=== PATIENT | female | born 1995 | race Caucasian/White ===

== ENCOUNTER 2018-01-08 20:53 | Emergency (ER) | payer SELFPAY ==
[2018-01-08 21:29] LABS: Urine Blood NEGATIVE (NEG); Urine Glucose NEGATIVE (NEG); Urine Protein 1+ (NEG); Urine Specific Gravity 1.025 (1.005-1.030)
[2018-01-08] MEDS ORDERED: ACETAMINOPHEN 500 MG TAB ONE (21:51)
[2018-01-08] MEDS ORDERED: ONDANSETRON 4 MG (ODT) TAB ONE (21:51)
[2018-01-08 22:02] LABS: Urine Bacteria >50 /HPF (<20); Urine RBC <5 /HPF (NONE SEEN)
[2018-01-08 22:03] LABS: Urine Culture Reflex Order REFLEXED
--- NOTE | 2018-01-08 22:46 | EDPHYS ---
Physician Documentation [facility] Name: Indu Washington Age: 22 yrs Sex: Female : 1995 Arrival Date: 01/08/2018 Time: 21:01 Bed 25 Private MD: ED Physician Richard Ledezma HPI: 01/08 21:35 This 22 yrs old Female presents to ER via Ambulatory with complaints of cp Dizziness, Nausea/Vomiting. 21:35 The patient presents with dizziness. Onset: The symptoms/episode began/occurred today. cp Associated signs and symptoms: Pertinent positives: headache, nausea, vomiting. Patient's baseline: Neuro: alert and fully oriented, Motor: no deficits, Ambulation: walks without assistance, Speech: normal. 21:35 Severity of symptoms: in the emergency department the symptoms have improved mildly. 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 - Social history:: Smoking status: Patient/guardian denies using tobacco. ROS: 21:42 Constitutional: Negative for body aches, chills, fever, poor PO intake. cp 21:42 Eyes: Negative for injury, pain, redness, and discharge. cp 21:42 ENT: Negative for drainage from ear(s), ear pain, sore throat, difficulty swallowing, difficulty handling secretions, hoarseness. 21:42 Neck: Negative for pain with movement, pain at rest, stiffness, tenderness, bony tenderness. 21:42 Cardiovascular: Negative for chest pain, edema, palpitations. 21:42 Respiratory: Negative for cough, shortness of breath, wheezing. 21:42 Abdomen/GI: Positive for nausea, vomiting, Negative for abdominal pain, diarrhea, constipation, dysphagia. 21:42 Back: Negative for pain at rest, pain with movement. 21:42 : Negative for urinary symptoms, flank pain, vaginal bleeding, vaginal discharge. 21:42 Skin: Negative for cellulitis, rash. 21:42 Neuro: Positive for dizziness, headache, Negative for altered mental status, weakness. 21:42 All other systems are negative. Exam: 21:48 Constitutional: The patient appears in no acute distress, alert, awake, comfortable, cp non-toxic, well developed, well nourished. 21:48 Head/Face: Normocephalic, atraumatic. cp 21:48 Eyes: Pupils equal round and reactive to light, extra-ocular motions intact. Lids and lashes normal. Conjunctiva and sclera are non-icteric and not injected. Cornea within normal limits. Periorbital areas with no swelling, redness, or edema. ENT: Nares patent. No nasal discharge, no septal abnormalities noted. Tympanic membranes are normal and external auditory canals are clear. Oropharynx with no redness, swelling, or masses, exudates, or evidence of obstruction, uvula midline. Mucous membranes moist. Neck: Trachea midline, no thyromegaly or masses palpated, and no cervical lymphadenopathy. Supple, full range of motion without nuchal rigidity, or vertebral point tenderness. No Meningismus. Chest/axilla: Normal chest wall appearance and motion. Nontender with no deformity. No lesions are appreciated. 21:48 Cardiovascular: Rate: normal, Rhythm: regular, Edema: is not appreciated, JVD: is not appreciated. 21:48 Respiratory: the patient does not display signs of respiratory distress, Respirations: normal, no use of accessory muscles, no retractions, no splinting, no tachypnea, labored breathing, is not present, Breath sounds: are clear throughout, no decreased breath sounds, no stridor, no wheezing. 21:48 Abdomen/GI: Inspection: abdomen appears normal, Bowel sounds: active, all quadrants, Palpation: abdomen is soft and non-tender, in all quadrants, rebound tenderness, is not appreciated, voluntary guarding, is not appreciated, involuntary guarding, is not appreciated. 21:48 Back: pain, is absent, ROM is normal. 21:48 Skin: cellulitis, is not appreciated, no rash present. 21:48 Neuro: Orientation: to person, place \T\ time. Mentation: is normal, Cerebellar function: is grossly normal, Motor: moves all fours, strength is normal, Sensation: no obvious gross deficits, Gait: is steady, at a normal pace, without difficulty. Vital Signs: 21:03 BP 107 / 64; Pulse 78; Resp 14; Temp 97.4(TE); Pulse Ox 99% on R/A; Weight 65.77 kg lk1 (R); Height 5 ft. 3 in. (160.02 cm) (R); Pain 8/10; 23:26 BP 107 / 79; Pulse 63; Resp 16; Pulse Ox 100% on R/A; mb3 21:03 Body Mass Index 25.69 (65.77 kg, 160.02 cm) lk1 MDM: 21:24 Patient medically screened. cp 22:00 Differential diagnosis: hypovolemia, UTI, pyelonephritis, dehydration, migraine. cp 22:45 Data reviewed: vital signs, nurses notes, lab test result(s), and as a result, I will cp discharge patient. 01/08 21:27 Order name: Urine Dipstick--Ancillary (enter results); Complete Time: 21:40 2 01/08 22:25 Interpretation: Normal except: UPROT 1+; U NIT POSITIVE. cp 01/08 21:27 Order name: Urine --Ancillary (enter results); Complete Time: 21:40 2 01/08 21:40 Order name: Urine Microscopic Only; Complete Time: 22:25 cp 01/08 22:25 Interpretation: Normal except: UWBC 5-10; UBACT >50; SQEPI 10-20. cp 01/08 22:04 Order name: Urine Culture EDMS 01/08 21:47 Order name: PO challenge; Complete Time: 22:43 cp 01/08 21:58 Order name: Orthostatics; Complete Time: 23:27 cp Administered Medications: 21:53 Drug: Zofran 4 mg Route: PO; mb3 23:28 Follow up: Response: No adverse reaction mb3 21:53 Drug: Tylenol 1000 mg Route: PO; mb3 23:27 Follow up: Response: No adverse reaction mb3 22:45 Drug: Rocephin (cefTRIAXone) 1 grams Route: IM; Site: right gluteus; mb3 23:27 Follow up: Response: No adverse reaction mb3 22:45 Drug: Bactrim (160 mg-800 mg (DS) 1 tablet Route: PO; mb3 23:27 Follow up: Response: No adverse reaction mb3 Disposition: 01/08/18 22:46 Discharged to Home. Impression: Urinary tract infection, site not specified, Nausea, Headache. - Condition is Stable. - Discharge Instructions: General Headache Without Cause, Nausea, Adult, Urinary Tract Infection. - Prescriptions for Zofran 4 mg Oral Tablet - take 1 tablet by ORAL route every 12 hours As needed; 20 tablet. Bactrim DS 800- 160 mg Oral Tablet - take 1 tablet by ORAL route every 12 hours for 7 days; 14 tablet. Ibuprofen 800 mg Oral Tablet - take 1 tablet by ORAL route every 8 hours As needed take with food; 30 tablet. - Medication Reconciliation Form, Thank You Letter, Antibiotic Education, Prescription Opioid Use form. - Follow up: Private Physician; When: 48 Hours; Reason: Recheck today's complaints. - Problem is new. - Symptoms have improved. Addendum: 01/11/2018 07:46 Co-signature as Attending Physician, Ricahrd Ledezma MD I agree with the assessment and c walters plan of care. Signatures: Dispatcher [employer] EDUT Richard Ledezma MD MD cha Page, Corey, PA PA cp Kluge, Leah, RN RN lk1 Sb Gaxiola RN RN mb3 Corrections: (The following items were deleted from the chart) 01/08 23:28 22:46 01/08/2018 22:46 Discharged to Home. Impression: Urinary tract infection, site mb3 not specified; Nausea; Headache. Condition is Stable. Forms are Medication Reconciliation Form, Thank You Letter, Antibiotic Education, Prescription Opioid Use. Follow up: Private Physician; When: 48 Hours; Reason: Recheck today's complaints. Problem is new. Symptoms have improved. cp
--- NOTE | 2018-01-08 22:46 | ER ---
Nurse's Notes [facility] Name: Indu Washington Age: 22 yrs Sex: Female : 1995 Arrival Date: 01/08/2018 Time: 21:01 Bed 25 Private MD: Diagnosis: Urinary tract infection, site not specified;Nausea;Headache Presentation: 01/08 21:01 Presenting complaint: Patient states: "I have been dizzy, vomiting, and had a lk1 headache.". Transition of care: patient was not received from another setting of care. Onset of symptoms was January 05, 2018. Initial Sepsis Screen: Does the patient meet any 2 criteria? No. Patient's initial sepsis screen is negative. Does the patient have a suspected source of infection? No. Patient's initial sepsis screen is negative. Care prior to arrival: None. 21:01 Method Of Arrival: Ambulatory lk1 21:01 Acuity: THIEN 3 lk1 Triage Assessment: 21:02 General: Appears ill, Behavior is calm, cooperative, appropriate for age. Pain: lk1 Complains of pain in head Pain currently is 8 out of 10 on a pain scale. Neuro: Level of Consciousness is awake, alert, obeys commands, Oriented to person, place, time, situation, Reports dizziness. GI: Reports constipation, nausea, vomiting. 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 - Social history:: Smoking status: Patient/guardian denies using tobacco. Screenin:13 Abuse screen: Denies threats or abuse. Nutritional screening: No deficits noted. mb3 Tuberculosis screening: No symptoms or risk factors identified. Fall Risk None identified. Assessment: 21:12 General: Appears uncomfortable, well groomed, Behavior is calm, cooperative, mb3 appropriate for age. Pain: Denies pain. Neuro: No deficits noted. Cardiovascular: No deficits noted. Heart tones S1 S2 present. Respiratory: No deficits noted. Airway is patent Respiratory effort is even, unlabored, Respiratory pattern is regular, symmetrical. GI: Bowel sounds present X 4 quads. Abd is soft Abd is non tender Reports nausea. : No signs and/or symptoms were reported regarding the genitourinary system. Musculoskeletal: No deficits noted. No signs and/or symptoms reported regarding the musculoskeletal system. Capillary refill < 3 seconds, Range of motion: intact in all extremities. Vital Signs: 21:03 BP 107 / 64; Pulse 78; Resp 14; Temp 97.4(TE); Pulse Ox 99% on R/A; Weight 65.77 kg lk1 (R); Height 5 ft. 3 in. (160.02 cm) (R); Pain 8/10; 23:26 BP 107 / 79; Pulse 63; Resp 16; Pulse Ox 100% on R/A; mb3 21:03 Body Mass Index 25.69 (65.77 kg, 160.02 cm) lk1 ED Course: 21:01 Patient arrived in ED. es 21:02 Triage completed. lk1 21:05 Arm band placed on right wrist. lk1 21:07 Sb Gaxiola, RN is Primary Nurse. mb3 21:20 Richard Harrington PA is PHCP. cp 21:20 Richard Ledezma MD is Attending Physician. cp 21:23 Patient has correct armband on for positive identification. Bed in low position. Call mb3 light in reach. Side rails up X 1. 23:26 No provider procedures requiring assistance completed. Patient did not have IV access mb3 during this emergency room visit. Administered Medications: 21:53 Drug: Zofran 4 mg Route: PO; mb3 23:28 Follow up: Response: No adverse reaction mb3 21:53 Drug: Tylenol 1000 mg Route: PO; mb3 23:27 Follow up: Response: No adverse reaction mb3 22:45 Drug: Rocephin (cefTRIAXone) 1 grams Route: IM; Site: right gluteus; mb3 23:27 Follow up: Response: No adverse reaction mb3 22:45 Drug: Bactrim (160 mg-800 mg (DS) 1 tablet Route: PO; mb3 23:27 Follow up: Response: No adverse reaction mb3 Outcome: 22:46 Discharge ordered by . cp 23:26 Discharged to home ambulatory. mb3 23:26 Condition: stable 23:26 Discharge instructions given to patient, Instructed on discharge instructions, follow up and referral plans. medication usage, Demonstrated understanding of instructions, follow-up care, medications, Prescriptions given X 2. 23:28 Patient left the ED. mb3 Signatures: Gabriella Holt Corey, PA PA cp Kluge, Leah, RN RN lk1 Sb Gaxiola RN RN mb3
[2018-01-08] MEDS ORDERED: SMZ./TMP. 800/160 MG TABLET ONE (22:47)
[2018-01-08] MEDS ORDERED: CEFTRIAXONE 1000 MG/VIAL ONE (22:48)
[2018-01-08] MEDS ORDERED: LIDOCAINE 1% 20 ML MDV ONE (22:48)
== END 2018-01-08 23:28 | disposition home or self-care (01) ==
LOC: ER 20:53
DX: N39.0 Urinary tract infection, site not specified (principal); R51 Headache; R11.0 Nausea
CPT/HCPCS: 81003; 81015; 81025; 87077; 87086; 87088; 87186; 96372; 99283

== ENCOUNTER 2019-01-09 13:43 | Emergency (ER) | payer SELFPAY ==
[2019-01-09 15:19] LABS: Absolute Lymphocytes (CBC) 1.3 K/uL (0.7-4.9); Absolute Monocytes 0.5 K/uL (0.1-1.3); Absolute Neutrophil 7.8 K/uL (1.8-8.0); Basophils % 0.4 % (0-1.3); Eosinophils % 0.8 % (0-4.4); Hematocrit 34.5 % (36.0-45.0); Lymphocytes % 13.8 % (15.3-44.8); MPV 8.5 fL (7.6-11.3); Monocytes % 4.7 % (3.3-12.3); RBC Red Blood Cell Count 5.22 M/uL (3.86-4.86)
[2019-01-09 15:49] LABS: Potassium 3.8 mmol/L (3.5-5.1)
[2019-01-09 15:58] LABS: Blood Morphology Comment NOTED (NOT SEEN); Hypochromasia 1+; Platelet Estimate ADEQ; Urine White Blood Cell Casts OK
--- NOTE | 2019-01-09 16:10 | RAD REPORT ---
EXAM DESCRIPTION: US - TRANSVAG OB - 01/09/2019 3:50 pm CLINICAL HISTORY: VAGINAL BLEEDING COMPARISON: No comparisons FINDINGS: A single gestational sac is seen within the uterus. The shape of the sac is within normal limits for gestational age. Within the sac is a single pole with crown-rump length of 2 mm, cor relating to estimated gestational age of 5 weeks 5 days. Estimated date of delivery is 09/06/2019. Heart rate is not yet identified. The placenta is not yet developed due to early gestational age. The maternal adnexa and ovaries are within normal limits. Normal Doppler blood flow was demonstrated to both ovaries. Mild pelvic ascites. IMPRESSION: Single early intrauterine gestation with estimated gestational age of 5 weeks 5 days, ED D 09/06/2019. Heart rate was not yet visualized, however this is still a normal finding at this gestational age. Fo llowup sonography would be recommended 10-12 days.
--- NOTE | 2019-01-09 16:40 | ER ---
Nurse's Notes [facility] Name: Indu Washington Age: 23 yrs Sex: Female : 1995 Arrival Date: 01/09/2019 Time: 13:44 Bed 23 Private MD: Diagnosis: Threatened Presentation: 01/09 14:28 Presenting complaint: Patient states: LMP was 4-17-19, took home UPT and was positive iw yesterday. Today she's having cramping in vaginal area and bleeding when she wipes. Transition of care: patient was not received from another setting of care. Onset of symptoms was January 09, 2019. Risk Assessment: Do you want to hurt yourself or someone else? Patient reports no desire to harm self or others. Initial Sepsis Screen: Does the patient meet any 2 criteria? No. Patient's initial sepsis screen is negative. Does the patient have a suspected source of infection? No. Patient's initial sepsis screen is negative. Care prior to arrival: None. 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 - Social history:: Smoking status: Patient/guardian denies using tobacco. - Ebola Screening: : Patient negative for fever greater than or equal to 101.5 degrees Fahrenheit, and additional compatible Ebola Virus Disease symptoms Patient denies exposure to infectious person Patient denies travel to an Ebola-affected area in the 21 days before illness onset No symptoms or risks identified at this time. Screenin:44 Abuse screen: Denies threats or abuse. Nutritional screening: No deficits noted. la1 Tuberculosis screening: No symptoms or risk factors identified. Fall Risk None identified. Assessment: 14:43 General: Appears in no apparent distress. Behavior is calm, cooperative. Pain: la1 Complains of pain in vaginal area. Neuro: Level of Consciousness is awake, alert, obeys commands, Oriented to person, place, time, situation. Cardiovascular: Capillary refill < 3 seconds Patient's skin is warm and dry. Respiratory: Airway is patent Respiratory effort is even, unlabored, Respiratory pattern is regular, symmetrical. GI: Abdomen is round Bowel sounds present X 4 quads. Abd is soft and non tender X 4 quads. : Reports Small amount of vaginal bleeding after wiping. Vital Signs: 14:31 BP 120 / 76; Pulse 89; Resp 16; Temp 98.5; Pulse Ox 100% ; Weight 68.04 kg; Height 5 iw ft. 2 in. (157.48 cm); Pain 7/10; 16:46 BP 120 / 86; Pulse 70; Resp 16; Temp 98.6; Pulse Ox 100% ; rv 14:31 Body Mass Index 27.44 (68.04 kg, 157.48 cm) ED Course: 13:44 Patient arrived in ED. tw3 14:27 Edin Razo PA is PHCP. [facility] 14:27 Mike Chanel MD is Attending Physician. [facility] 14:28 Edwar Mojica, BRITTANY is Primary Nurse. la1 14:30 Triage completed. iw 14:32 Arm band placed on. iw 14:44 Call light in reach. la1 15:32 No provider procedures requiring assistance completed. Inserted saline lock: 22 gauge la1 in right antecubital area, using aseptic technique. Blood collected. 15:50 TRANSVAG OB In Process Unspecified. EDMS 15:55 Ultrasound completed. Patient tolerated well. sg3 16:48 IV discontinued, intact, bleeding controlled, No redness/swelling at site. Pressure rv dressing applied. Administered Medications: No medications were administered Outcome: 16:39 Discharge ordered by . [facility] 16:47 Discharged to home ambulatory. rv 16:47 Condition: good 16:47 Discharge instructions given to patient, Instructed on discharge instructions, follow up and referral plans. Demonstrated understanding of instructions, follow-up care. 16:48 Patient left the ED. rv Signatures: Dispatcher [employer] EDMS Edin Razo PA PA jmm Williams, Irene, RN RN Edwar Mojica RN RN la1 Michelle Mcneill tw3 Key Baptiste sg3 Fermin Guerin RN RN rv
--- NOTE | 2019-01-09 16:41 | EDPHYS ---
Physician Documentation [facility] Name: Indu Washington Age: 23 yrs Sex: Female : 1995 Arrival Date: 01/09/2019 Time: 13:44 Bed 23 Private MD: ED Physician Mike Chanel HPI: 01/09 14:37 This 23 yrs old Female presents to ER via Ambulatory with complaints of jmm Abdominal Cramping - unk weeks preg. 14:37 The patient presents to the emergency department with vaginal bleeding. Associated jmm signs and symptoms: Pertinent positives: vaginal bleeding. This is a 23 year old female with a history of anxiety that presents to the ED with complaints of pelvic cramping and vaginal bleeding beginning earlier today. Patient denies vomiting, denies nausea, denies diarrhea. . 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 - Social history:: Smoking status: Patient/guardian denies using tobacco. - Ebola Screening: : Patient negative for fever greater than or equal to 101.5 degrees Fahrenheit, and additional compatible Ebola Virus Disease symptoms Patient denies exposure to infectious person Patient denies travel to an Ebola-affected area in the 21 days before illness onset No symptoms or risks identified at this time. ROS: 14:37 Constitutional: Negative for fever, chills, and weight loss, Cardiovascular: Negative jmm for chest pain, palpitations, and edema, Respiratory: Negative for shortness of breath, cough, wheezing, and pleuritic chest pain. 14:37 Abdomen/GI: Negative for abdominal pain, nausea, vomiting, diarrhea, and constipation. 14:37 Abdomen/GI: 14:37 : Positive for vaginal bleeding. 14:37 All other systems are negative. Exam: 14:37 Head/Face: atraumatic. Eyes: EOMI, no conjunctival erythema appreciated ENT: Moist jmm Mucus Membranes Neck: Trachea midline, Supple Chest/axilla: Normal chest wall appearance and motion. Cardiovascular: Regular rate and rhythm. No edema appreciated Respiratory: Normal respirations, no respiratory distress appreciated Abdomen/GI: Non distended, soft Back: Normal ROM Skin: General appearance color normal MS/ Extremity: Moves all extremities, no obvious deformities appreciated, no edema noted to the lower extremities Neuro: Awake and alert, normal gait Psych: Behavior is normal, Mood is normal, Patient is cooperative and pleasant 14:37 Constitutional: The patient appears in no acute distress, alert, awake. 14:37 Abdomen/GI: Inspection: abdomen appears normal, Bowel sounds: normal, Palpation: abdomen is soft and non-tender, in all quadrants. Vital Signs: 14:31 BP 120 / 76; Pulse 89; Resp 16; Temp 98.5; Pulse Ox 100% ; Weight 68.04 kg; Height 5 iw ft. 2 in. (157.48 cm); Pain 7/10; 16:46 BP 120 / 86; Pulse 70; Resp 16; Temp 98.6; Pulse Ox 100% ; rv 14:31 Body Mass Index 27.44 (68.04 kg, 157.48 cm) iw MDM: 14:37 Patient medically screened. [facility] 16:38 Data reviewed: vital signs, nurses notes. Counseling: I had a detailed discussion with leola the patient and/or guardian regarding: the historical points, exam findings, and any diagnostic results supporting the discharge/admit diagnosis, lab results, radiology results, the need for outpatient follow up, to return to the emergency department if symptoms worsen or persist or if there are any questions or concerns that arise at home. ED course: Patient advised to follow up with OB for reevaluation in 2 to 3 days. Patient is otherwise advised to return to the ED if she develops increased pain, weakness, or any other concerning symptoms. Patient understood and agrees with the plan of care. . 01/09 14:39 Order name: Urine Dipstick--Ancillary (enter results) 01/09 14:39 Order name: Urine --Ancillary (enter results) 01/09 14:46 Order name: Quantitative Hcg; Complete Time: 16:08 [facility] 01/09 14:46 Order name: Abo/rh Typing; Complete Time: 15:30 [facility] 01/09 14:46 Order name: Basic Metabolic Panel; Complete Time: 16:08 [facility] 01/09 14:46 Order name: CBC with Diff; Complete Time: 16:08 [facility] 01/09 14:46 Order name: IV Saline Lock; Complete Time: 15:24 [facility] 01/09 14:46 Order name: Labs collected and sent; Complete Time: 15:24 [facility] 01/09 14:46 Order name: NPO; Complete Time: 15:24 [facility] 01/09 14:46 Order name: Urine Dipstick-Ancillary (obtain specimen); Complete Time: 15:24 [facility] 01/09 14:57 Order name: TRANSVAG OB; Complete Time: 16:15 [facility] 01/09 15:35 Order name: CBC Smear Scan; Complete Time: 16:08 [facility] Administered Medications: No medications were administered Disposition: 01/09/19 16:39 Discharged to Home. Impression: Threatened . - Condition is Stable. - Discharge Instructions: Threatened Miscarriage, Vaginal Bleeding During , First Trimester, Pelvic Rest. - Medication Reconciliation Form, Thank You Letter, Antibiotic Education, Prescription Opioid Use form. - Follow up: Private Physician; When: 2 - 3 days; Reason: Recheck today's complaints, Continuance of care, Repeat Beta-HCG (48 Hours), Re-evaluation by your physician. Addendum: 01/13/2019 20:52 Co-signature as Attending Physician, Mike Chanel MD. g s Signatures: Dispatcher [employer] [facility] Edin Razo PA PA [facility] Shruthi Bazzi, Mike Swenson RN, MD MD gs Vicente, Ronaldo, RN RN rv Corrections: (The following items were deleted from the chart) 01/09 14:57 14:47 OB Limited+[id number].[id number] ordered. [facility] 16:48 16:39 01/09/2019 16:39 Discharged to Home. Impression: Threatened . Condition rv is Stable. Forms are Medication Reconciliation Form, Thank You Letter, Antibiotic Education, Prescription Opioid Use. Follow up: Private Physician; When: 2 - 3 days; Reason: Recheck today's complaints, Continuance of care, Repeat Beta-HCG (48 Hours), Re-evaluation by your physician. [facility]
[2019-01-09 17:12] LABS: Urine Blood 1+ (NEG); Urine Glucose NEGATIVE (NEG); Urine Protein NEGATIVE (NEG); Urine Specific Gravity 1.025 (1.005-1.030); Urine pH 6.5 (5.0-7.0)
== END 2019-01-09 16:48 | disposition home or self-care (01) ==
LOC: ER 13:43
DX: O20.0 Threatened abortion (principal); Z3A.01 Less than 8 weeks gestation of pregnancy
CPT/HCPCS: 36415; 76813; 80048; 81003; 81025; 84702; 85025; 86900; 86901; 99283

== ENCOUNTER 2019-08-31 01:50 | Inpatient (IN) | payer OTHER ==
--- OUTSIDE RECORDS SUMMARY | 2019-08-31 01:52 | XMS REPORT ---
:1995 [facility] Address [address] [place] [id number] Care Team Providers Name Role Phone Unavailable Unavailable Unavailable Problems This patient has no known problems. Allergies, Adverse Reactions, Alerts This patient has no known allergies or adverse reactions. Medications This patient has no known medications.
[2019-08-31] MEDS ORDERED: CARBOPROST TROME 250 MCG/ML IM PRN (02:39)
[2019-08-31] MEDS ORDERED: PENICILLIN 5 MU in NA CHLORIDE 0.9% 100 ML IV ONE (02:39)
[2019-08-31] MEDS ORDERED: BUTORPHANOL 1 MG/ML INJ IV PRN (02:39)
[2019-08-31] MEDS ORDERED: PROMETHAZINE INJ 25 MG/ML AMP IM PRN (02:39)
[2019-08-31] MEDS ORDERED: Ringers Lactate 1,000 ML IV PRN (02:39)
[2019-08-31] MEDS ORDERED: METHYLERGONOVINE 0.2MG/ML AMP IM PRN (02:39)
[2019-08-31 02:50] VITALS: BMI 34.2
[2019-08-31] MEDS ORDERED: OXYTOCIN/LR 20 UNIT/1,000 ML BAG IV SCH ×2 (03:00→18:00)
[2019-08-31] MEDS ORDERED: Ringers Lactate 1,000 ML IV SCH (03:00)
[2019-08-31 03:32] LABS: Absolute Lymphocytes (CBC) 2.1 K/uL (0.7-4.9); Basophils % 0.4 % (0-1.3); Hematocrit 24.1 % (36.0-45.0); Lymphocytes % 22.8 % (15.3-44.8); MPV 8.4 fL (7.6-11.3)
[2019-08-31] MEDS ORDERED: PENICILLIN 2.5 MU in NA CHLORIDE 0.9% 100 ML IV SCH ×2 (05:00→07:30)
[2019-08-31 05:06] LABS: Blood Morphology Comment NOTED (NOT SEEN); Hypochromasia 2+; Platelet Estimate ADEQ; Urine White Blood Cell Casts OK
[2019-08-31 05:35] LABS: Urine Appearance CLEAR; Urine Bilirubin NEGATIVE (NEG); Urine Blood NEGATIVE (NEG); Urine Color YELLOW; Urine Glucose NEGATIVE (NEG); Urine Protein NEGATIVE (NEG); Urine Specific Gravity 1.025 (1.005-1.030); Urine Urobilinogen 0.2 mg/dL (0.2-1.0); Urine pH 6.5 (5.0-7.0)
[2019-08-31 05:53] LABS: RPR (Rapid Plasma Reagin) NON-REACT (NON-REACT)
[2019-08-31 05:56] LABS: Urine Bacteria <20 /HPF (<20); Urine Culture Reflex Order REFLEXED; Urine RBC <5 /HPF (NONE SEEN); Urine Urothelial Cells <5 /HPF (NONE SEEN)
[2019-08-31] MEDS ORDERED: METHYLERGONOVINE 0.2MG/ML AMP IM ONE (14:44)
[2019-08-31] MEDS ORDERED: CARBOPROST TROME 250 MCG/ML IM ONE (14:44)
[2019-08-31] MEDS ORDERED: LIDOCAINE 1% MPF 30 ML VIAL ONE (14:45)
[2019-08-31] MEDS ORDERED: DIPHENHYDRAMINE 25 MG TAB/CAP PO PRN (17:19)
[2019-08-31] MEDS ORDERED: Oxycodone HCl/Acetaminophen 1 TAB TAB PO PRN ×2 (17:19)
[2019-08-31] MEDS ORDERED: DOCUSATE NA/SENNA CONC 1 TAB PO PRN (17:19)
[2019-08-31] MEDS ORDERED: ACETAMINOPHEN 500 MG TAB PO PRN (17:19)
[2019-08-31] MEDS ORDERED: BISACODYL 10 MG RECTAL SUPP RECT PRN (17:19)
[2019-08-31] MEDS ORDERED: OXYTOCIN/LR 20 UNIT/1,000 ML BAG IV ONE (18:00)
--- NOTE | 2019-09-01 00:20 | OP ---
Surgeon: Karl Stewart MD History: This is a 24-year-old primigravida, 39 weeks 1 day came in with premature rupture of membra anastacia. Rh positive, immune to Rubella. Positive strep screen. Given 4 doses of penicillin during the labor, 2 doses of Stadol 1 mg plus Phenergan 25 mg IM. After achieving 4 cm, went rapidly to comple te second stage of 15 to 20 minutes. Spontaneous vaginal delivery of an estimated 6-1/2 to 7 pounds female Apgars 9 and 9. Very small first-degree laceration involving the right labia minora sutured w ith 2-0 chromic local infiltration, 4-5 stitches, 1-2 [id number] stitches at the posterior fourc hette for a very small first-degree there also. Schultze delivery of the placenta was inspected and noted to be intact and normal. 400 mL or less blood loss. The patient tolerated all procedures well . Final Diagnoses: Term intrauterine , spontaneous vaginal delivery, penicillin prophylaxis. Patient had mildly elevated blood pressures and edema, but was always negative for protein. I do no t believe she has preeclampsia. CECILIO/ISABEL Voice ID: [id number] Report ID: [id number]
[2019-09-01] MEDS ORDERED: IBUPROFEN 600 MG TAB ONE ×2 (05:00→17:24)
[2019-09-01] MEDS: IBUPROFEN 600 MG TAB PO PRN ×2 (05:00→17:30)
--- NOTE | 2019-09-01 14:34 | PN ---
Patient is on 20 milliunits of Pitocin. After the Stadol though contractions pretty much spread out. We will go up 2 more milliunits and see if that helps. Beat to beat decreases but returns after a reasonable period of time. I think we will try to stay away from the Stadol but if we give her anoth er dose we just give Stadol and no Phenergan to go along with it. Baby is down low at almost 0 stati on. She is about 3 cm, 60% effaced. As soon as we finish out the effacement, I think dilation will start. CECILIO/ISABEL Voice ID: [id number] Report ID: [id number]
--- NOTE | 2019-09-01 14:34 | PREOPHP ---
Date of Admission: 08/31/2019 24-year-old primigravida, at 39 weeks and 2 days approximately, has been followed antepartum and note d to have significant swelling. Preeclampsia has been discussed with patient on numerous occasions. She has positive beta strep status. This has been discussed and the patient is currently on penicil lorena prophylaxis and she has been noncompliant in taking her vitamins and has become progressively mor e anemic during the . On admission, hematocrit is in the 24 to 25 range. Patient is comple tely asymptomatic. She experienced spontaneous rupture of membranes, came into labor and delivery ap proximately somewhere between midnight and 4 a.m. She has been started on penicillin prophylaxis and Pitocin. She is now cm, 60% effaced, vertex, -1 station. Clear fluid. Patient had been given 1 mg Stadol and the baby's reactivity has decreased but was good before. Her urine protein wa s negative. Her blood pressures are mildly elevated and of course, she does have significant swellin g, will watch carefully during the labor for development of preeclampsia. Full admission talk given including anemia and preeclampsia precautions, anticipate delivery sometime later today. Patient is Rh positive and immune to Rubella. CECILIO/ISABEL Voice ID: [id number]
--- NOTE | 2019-09-01 14:34 | PN ---
Baby looks better, more variability now. Patient and baby are waking up. She is 3 cm, 70% vertex at 0 station. I think, when effacement is complete we will start seeing more rapid dilation. We will check her again in an hour or so and see what kind of progress we are making. CECILIO/ISABEL Voice ID: [id number] Report ID: [id number]
[2019-09-01 17:36] VITALS: BP 139/82; TEMP 98.2
--- NOTE | 2019-09-02 02:10 | DS ---
Date of Discharge: 09/01/2019 Hospital Course: A 24-year-old primigravida, 39 weeks 1 day, delivered an estimated 6-1/2 to 7 pound s female , Apgars 9 and 9. During the labor, had Stadol 1 mg x2 plus Phenergan 25 mg IM x2. V maksim small first degree laceration x2. Sutured with 2-0 chromic. Local infiltration. She also deliv ered the placenta, was inspected and noted to be intact and normal. Less than 400 mL blood loss. Pe nicillin prophylaxis x4 during the labor. She is Rh positive and immune to Rubella. She has had her Tdap immunization. Came in with a very low H and H, but this has been chronic and she has not been taking her vitamins and iron as instructed. She is absolutely asymptomatic. With the baby out, she should be able to replenish her iron stores more rapidly. Full discussion with patient multiple time s during the and again today. She will report back to my office in 6 weeks for followup. She will report any temperature elevation of 100 degrees or greater, severe pain, heavy bleeding, or any other type abnormalities and of course iron supplementation strongly suggested. Final Diagnoses: Term intrauterine . Spontaneous vaginal delivery. Preexisting anemia. P enicillin prophylaxis. CECILIO/ISABEL Voice ID: [id number] Report ID: [id number]
[2019-09-03 05:41] LABS: HBsAG Nonreactive (Nonreactive)
== END 2019-09-01 20:36 | disposition home or self-care (01) | DRG 806 ==
LOC: L&D 01:50 → 2ND-WC 02:31
PROVIDERS: ADMIT Specialist; ATTEND Specialist
PROC: 0HQ9XZZ Repair Perineum Skin, External Approach (ICD-10-PCS; principal; 2019-08-31)
PROC: 10E0XZZ Delivery of Products of Conception, External Approach (ICD-10-PCS; 2019-08-31)
DX: O70.0 First degree perineal laceration during delivery (principal); O98.82 Other maternal infectious and parasitic diseases complicating childbirth; Z37.0 Single live birth; O99.02 Anemia complicating childbirth; D64.9 Anemia, unspecified; Z3A.39 39 weeks gestation of pregnancy; B95.1 Streptococcus, group B, as the cause of diseases classified elsewhere
CPT/HCPCS: 36415; 81001; 85025; 86592; 86850; 86900; 86901; 87086; 87088; 87340; J0595; J2210; J2550; J2590; J7120

== ENCOUNTER 2020-07-27 10:22 | Emergency (ER) | payer OTHER ==
--- OUTSIDE RECORDS SUMMARY | 2020-07-27 10:24 | XMS REPORT | Continuity of Care Document ---
:1995 Author Organization [facility] t Address [address] [place] [address] Care Team Providers Name Role Phone Doctor Unassigned, Name Attending Clinician Unavailable Problems This patient has no known problems. Allergies, Adverse Reactions, Alerts This patient has no known allergies or adverse reactions. Medications This patient has no known medications. Procedures This patient has no known procedures. Encounters Start End Encounter Admission Attending Care Care Encounter Source Date/Time Date/Time Type Type Clinicians Facility Department ID 2019-02-26 2019-02-26 Patient Doctor ANA [id number] 00:00:00 00:00:00 Secure Msg UnassRED preciado [id number] [place] [facility] [id number] Results This patient has no known results.
[2020-07-27] MEDS ORDERED: NA CHLORIDE 0.9% 1,000 ML ONE (11:19)
[2020-07-27 11:28] LABS: Absolute Lymphocytes (CBC) 2.4 K/uL (0.7-4.9); Hematocrit 33.2 % (36.0-45.0); Lymphocytes % 38.5 % (15.3-44.8); MPV 8.2 fL (7.6-11.3); RBC Red Blood Cell Count 4.97 M/uL (3.86-4.86)
[2020-07-27] MEDS ORDERED: CEFTRIAXONE/SWI 1gm 1 GM/10 ML SYR ONE (11:46)
[2020-07-27] MEDS ORDERED: ONDANSETRON 4 MG/2 ML VIAL ONE (11:46)
[2020-07-27 12:07] LABS: BUN Blood Urea Nitrogen 9 mg/dL (7-18); Bicarbonate 26 mmol/L (21-32); Glucose Level 85 mg/dL (74-106); HCG, Quantitative 33755 mIU/mL (1-3); Sodium Level 139 mmol/L (136-145)
--- NOTE | 2020-07-27 12:17 | EDPHYS ---
Physician Documentation [facility] Name: Indu Washington Age: 24 yrs Sex: Female : 1995 Arrival Date: 07/27/2020 Time: 10:25 Bed 16 Private MD: ALEXUS Physician Richard Ledezma HPI: 07/27 10:50 This 24 yrs old Female presents to ER via Unassigned with complaints of malvin Vaginal Bleeding. 10:50 The patient presents with pelvic pain, vaginal bleeding that is. Onset: The malvin symptoms/episode began/occurred 2 day(s) ago. Onset: The symptoms/episode began/occurred acutely. Modifying factors: The symptoms are alleviated by nothing, the symptoms are aggravated by nothing. Associated signs and symptoms: The patient has no apparent associated signs or symptoms. Severity of symptoms: At their worst the symptoms were mild, in the emergency department the symptoms are unchanged. The patient is sexually active, reportedly has a single partner. The patient has not experienced similar symptoms in the past. 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 - Family history:: not pertinent. - Social history:: Smoking status: unknown. ROS: 10:50 Constitutional: Negative for fever, chills, and weight loss, Eyes: Negative for injury, malvin pain, redness, and discharge, ENT: Negative for injury, pain, and discharge, Neck: Negative for injury, pain, and swelling, Cardiovascular: Negative for chest pain, palpitations, and edema, Respiratory: Negative for shortness of breath, cough, wheezing, and pleuritic chest pain, Abdomen/GI: Negative for abdominal pain, nausea, vomiting, diarrhea, and constipation, Back: Negative for injury and pain, MS/Extremity: Negative for injury and deformity, Skin: Negative for injury, rash, and discoloration, Neuro: Negative for headache, weakness, numbness, tingling, and seizure, Psych: Negative for depression, anxiety, suicide ideation, homicidal ideation, and hallucinations, Allergy/Immunology: Negative for hives, rash, and allergies, Endocrine: Negative for neck swelling, polydipsia, polyuria, polyphagia, and marked weight changes, Hematologic/Lymphatic: Negative for swollen nodes, abnormal bleeding, and unusual bruising. 10:50 Back: Positive for 10:50 : Positive for vaginal bleeding. Exam: 10:50 Constitutional: This is a well developed, well nourished patient who is awake, alert, malvin and in no acute distress. Head/Face: Normocephalic, atraumatic. Eyes: Pupils equal round and reactive to light, extra-ocular motions intact. Lids and lashes normal. Conjunctiva and sclera are non-icteric and not injected. Cornea within normal limits. Periorbital areas with no swelling, redness, or edema. ENT: Nares patent. No nasal discharge, no septal abnormalities noted. Tympanic membranes are normal and external auditory canals are clear. Oropharynx with no redness, swelling, or masses, exudates, or evidence of obstruction, uvula midline. Mucous membranes moist. Neck: Trachea midline, no thyromegaly or masses palpated, and no cervical lymphadenopathy. Supple, full range of motion without nuchal rigidity, or vertebral point tenderness. No Meningismus. Chest/axilla: Normal chest wall appearance and motion. Nontender with no deformity. No lesions are appreciated. Cardiovascular: Regular rate and rhythm with a normal S1 and S2. No gallops, murmurs, or rubs. Normal PMI, no JVD. No pulse deficits. Respiratory: Lungs have equal breath sounds bilaterally, clear to auscultation and percussion. No rales, rhonchi or wheezes noted. No increased work of breathing, no retractions or nasal flaring. Abdomen/GI: Soft, non-tender, with normal bowel sounds. No distension or tympany. No guarding or rebound. No evidence of tenderness throughout. Back: No spinal tenderness. No costovertebral tenderness. Full range of motion. Skin: Warm, dry with normal turgor. Normal color with no rashes, no lesions, and no evidence of cellulitis. MS/ Extremity: Pulses equal, no cyanosis. Neurovascular intact. Full, normal range of motion. Neuro: Awake and alert, GCS 15, oriented to person, place, time, and situation. Cranial nerves II-XII grossly intact. Motor strength 5/5 in all extremities. Sensory grossly intact. Cerebellar exam normal. Normal gait. Psych: Awake, alert, with orientation to person, place and time. Behavior, mood, and affect are within normal limits. Vital Signs: 11:00 BP 107 / 72; Pulse 71; Resp 16; Temp 98; Pulse Ox 100% ; bp 12:36 BP 105 / 61; Pulse 66; Resp 16; Pulse Ox 100% on R/A; ll1 12:43 BP 112 / 76; Pulse 73; Resp 16; Pulse Ox 100% ; ll1 MDM: 10:31 Patient medically screened. malvin 10:51 Differential diagnosis: menometrorrhagia, menorrhea, urinary tract infection. Data malvin reviewed: vital signs, nurses notes, lab test result(s), Beta HCG: CBC, electrolytes, Rh: urinalysis, radiologic studies, ultrasound. Data interpreted: dried yeast supervisor: rate is 69 beats/min, rhythm is regular, Pulse oximetry: on room air is 100 %. Counseling: I had a detailed discussion with the patient and/or guardian regarding: the historical points, exam findings, and any diagnostic results supporting the discharge/admit diagnosis, lab results, radiology results, the need for outpatient follow up, for definitive care, an OB/Gyne specialist. 07/27 10:49 Order name: Quantitative Hcg; Complete Time: 12:15 [facility] 07/27 10:49 Order name: Abo/rh Typing; Complete Time: 12:15 [facility] 07/27 10:49 Order name: Basic Metabolic Panel; Complete Time: 12:15 [facility] 07/27 10:49 Order name: CBC with Diff [facility] 07/27 11:16 Order name: Urine Dipstick--Ancillary (enter results) 07/27 11:16 Order name: Urine --Ancillary (enter results) 07/27 10:44 Order name: Urine Dipstick-Ancillary (obtain specimen); Complete Time: 10:54 [facility] 07/27 10:44 Order name: Urine Test (obtain specimen); Complete Time: 10:54 [facility] 07/27 10:49 Order name: US Transvaginal Ob [facility] 07/27 11:18 Order name: Urine Culture [facility] 07/27 11:45 Order name: CBC Smear Scan [facility] 07/27 10:49 Order name: IV Saline Lock; Complete Time: 11:05 [facility] 07/27 10:49 Order name: Labs collected and sent; Complete Time: 11:05 [facility] 07/27 10:49 Order name: NPO; Complete Time: 10:51 [facility] Administered Medications: 11:10 Drug: NS 0.9% 1000 ml Route: IV; Rate: 1 bolus; Site: left antecubital; bp 12:35 Follow up: Response: No adverse reaction; RASS: Alert and Calm (0); IV Status: ll1 Completed infusion; IV Intake: 1000ml 12:17 Drug: Zofran (Ondansetron) 4 mg Route: IVP; Site: left antecubital; ll1 12:34 Follow up: Response: No adverse reaction; RASS: Alert and Calm (0) ll1 12:17 Drug: Rocephin 1 grams Route: IV; Rate: per protocol; Site: left antecubital; ll1 12:35 Follow up: Response: No adverse reaction; RASS: Alert and Calm (0); IV Status: ll1 Completed infusion; IV Intake: 10ml Disposition: 07/27/20 12:16 Discharged to Home. Impression: Threatened , related conditions, unspecified, first trimester, Urinary tract infection, site not specified. - Condition is Stable. - Discharge Instructions: Threatened Miscarriage, Vaginal Bleeding During , First Trimester, First Trimester of , Glzf-jj-Oyvs, First Trimester of , Threatened Miscarriage, Wujl-[id number]-Nsvb, Pelvic Rest. - Prescriptions for Vitamin 27- 0.8 mg Oral Tablet - take 1 tablet by ORAL route once daily; 30 tablet. Macrobid 100 mg Oral Capsule - take 1 capsule by ORAL route every 12 hours for 7 days; 14 capsule. - Medication Reconciliation Form, Thank You Letter, Antibiotic Education, Prescription Opioid Use form. - Follow up: Private Physician; When: 2 - 3 days; Reason: Recheck today's complaints, Continuance of care, Re-evaluation by your physician. Follow up: Karl Stewart; When: 2 - 3 days; Reason: Recheck today's complaints, Continuance of care, Re-evaluation by your physician. - Problem is new. - Symptoms have improved. Signatures: Dispatcher [employer] Richard Beaver MD MD cha Peltier, Brian RN RN Efren Monge RN RN ll1 Corrections: (The following items were deleted from the chart) 12:44 12:16 07/27/2020 12:16 Discharged to Home. Impression: Threatened ; ll1 related conditions, unspecified, first trimester; Urinary tract infection, site not specified. Condition is Stable. Discharge Instructions: Threatened Miscarriage, Vaginal Bleeding During , First Trimester, First Trimester of , Pzef-ld-Tqxu, First Trimester of , Threatened Miscarriage, Boxb-er-Bhni, Pelvic Rest. Prescriptions for Vitamin 27-0.8 mg Oral Tablet - take 1 tablet by ORAL route once daily; 30 tablet, Macrobid 100 mg Oral Capsule - take 1 capsule by ORAL route every 12 hours for 7 days; 14 capsule. and Forms are Medication Reconciliation Form, Thank You Letter, Antibiotic Education, Prescription Opioid Use. Follow up: Private Physician; When: 2 - 3 days; Reason: Recheck today's complaints, Continuance of care, Re-evaluation by your physician. Follow up: Karl Stewart; When: 2 - 3 days; Reason: Recheck today's complaints, Continuance of care, Re-evaluation by your physician. Problem is new. Symptoms have improved. malvin
--- NOTE | 2020-07-27 12:17 | ER ---
Nurse's Notes [facility] Name: Indu Washington Age: 24 yrs Sex: Female : 1995 Arrival Date: 07/27/2020 Time: 10:25 Bed 16 Private MD: Diagnosis: Threatened ; related conditions, unspecified, first trimester;Urinary tract infection, site not specified Presentation: 07/27 10:58 Chief complaint: Patient states: had a positive UPT on Thursday, LMP was end of apr or iw beginning of May, started having light vaginal bleeding last night and some mild pelvic pain , G2, P1. Coronavirus screen: At this time, the client does not indicate any symptoms associated with coronavirus-19. Ebola Screen: Patient negative for fever greater than or equal to 101.5 degrees Fahrenheit, and additional compatible Ebola Virus Disease symptoms Patient denies exposure to infectious person. Patient denies travel to an Ebola-affected area in the 21 days before illness onset. No symptoms or risks identified at this time. Initial Sepsis Screen: Does the patient meet any 2 criteria? No. Patient's initial sepsis screen is negative. Does the patient have a suspected source of infection? No. Patient's initial sepsis screen is negative. Risk Assessment: Do you want to hurt yourself or someone else? Patient reports no desire to harm self or others. Onset of symptoms was July 27, 2020. 10:58 Method Of Arrival: Ambulatory iw 10:58 Acuity: THIEN 3 iw Triage Assessment: 10:30 General: Appears in no apparent distress. comfortable, Behavior is cooperative, bp appropriate for age, anxious. Pain: Denies pain. EENT: No deficits noted. Neuro: No deficits noted. Cardiovascular: No deficits noted. Respiratory: No deficits noted. GI: No signs and/or symptoms were reported involving the gastrointestinal system. : Reports vaginal bleeding that is. Derm: No deficits noted. Musculoskeletal: No deficits noted. 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 - Family history:: not pertinent. - Social history:: Smoking status: unknown. Screenin:30 Abuse screen: Denies threats or abuse. Denies injuries from another. Nutritional bp screening: No deficits noted. Tuberculosis screening: No symptoms or risk factors identified. Fall Risk None identified. Assessment: 10:30 General: SEE TRIAGE NOTE. : Vaginal discharge is bloody. bp 11:30 Reassessment: Patient and/or family updated on plan of care and expected duration. Pain ll1 level reassessed. 12:30 Reassessment: Patient and/or family updated on plan of care and expected duration. Pain ll1 level reassessed. Patient is alert, oriented x 3, equal unlabored respirations, skin warm/dry/pink. Patient states feeling better. Vital Signs: 11:00 BP 107 / 72; Pulse 71; Resp 16; Temp 98; Pulse Ox 100% ; bp 12:36 BP 105 / 61; Pulse 66; Resp 16; Pulse Ox 100% on R/A; ll1 12:43 BP 112 / 76; Pulse 73; Resp 16; Pulse Ox 100% ; ll1 ED Course: 10:25 Patient arrived in ED. ds1 10:28 Richard Ledezma MD is Attending Physician. malvin 10:30 Arm band placed on. bp 10:30 Patient has correct armband on for positive identification. Bed in low position. Call bp light in reach. Side rails up X2. 10:50 Ochoa Joseph, BRITTANY is Primary Nurse. bp 10:52 Radiology exam delayed due to test not completed at this time. aa4 11:00 Triage completed. iw 11:00 Inserted saline lock: 22 gauge in left antecubital area, using aseptic technique. Blood ll1 collected. 12:04 Transvaginal Ob In Process Unspecified. EDMS 12:16 Karl Stewart MD is Referral Physician. malvin 12:43 No provider procedures requiring assistance completed. IV discontinued, intact, ll1 bleeding controlled, No redness/swelling at site. Pressure dressing applied. Administered Medications: 11:10 Drug: NS 0.9% 1000 ml Route: IV; Rate: 1 bolus; Site: left antecubital; bp 12:35 Follow up: Response: No adverse reaction; RASS: Alert and Calm (0); IV Status: ll1 Completed infusion; IV Intake: 1000ml 12:17 Drug: Zofran (Ondansetron) 4 mg Route: IVP; Site: left antecubital; ll1 12:34 Follow up: Response: No adverse reaction; RASS: Alert and Calm (0) ll1 12:17 Drug: Rocephin 1 grams Route: IV; Rate: per protocol; Site: left antecubital; ll1 12:35 Follow up: Response: No adverse reaction; RASS: Alert and Calm (0); IV Status: ll1 Completed infusion; IV Intake: 10ml Intake: 12:35 IV: 10ml; Total: 10ml. ll1 12:35 IV: 1000ml; Total: 1010ml. ll1 Outcome: 12:16 [facility] 12:[facility] Patient left [facility]. 1 12:44 Discharged to home ambulatory. ll1 12:44 Condition: stable 12:44 Discharge instructions given to patient, Instructed on discharge instructions, follow up and referral plans. medication usage, Demonstrated understanding of instructions, follow-up care, medications, Prescriptions given X 2. Addendum: 07/30/2020 09:27 Addendum: Culture Results: Positive urine culture. No further action required. Bacteria i w sensitive to prescribed antibiotic. Signatures: Dispatcher [employer] EDMS Richard Ledezma MD MD cha Sanford, Demi ds1 Shruthi Bazzi, Jennifer Corbett RN4 Ochoa Joseph RN RN bp Lewis, Lynsay, RN RN ll1
[2020-07-27 12:21] LABS: Urine Blood TRACE (NEG); Urine Glucose NEGATIVE (NEG); Urine Protein NEGATIVE (NEG); Urine pH 8.5 (5.0-7.0)
[2020-07-27 12:47] LABS: Blood Morphology Comment NOTED (NOT SEEN); Platelet Estimate ADEQ; White Blood Cell Scan OK (OK)
[2020-07-27 12:48] LABS: Hypochromasia 1+
--- NOTE | 2020-07-27 12:55 | RAD REPORT ---
EXAM DESCRIPTION: US - Transvaginal OB - 07/27/2020 12:04 pm CLINICAL HISTORY: ABD CRAMPING, Vaginal bleeding COMPARISON: OB Complete dated 07/15/2019 FINDINGS: A single gestational sac is seen within the uterus. The shape of the sac is within normal limits for gestational age. Within the sac is a single pole with crown-rump length of 4 mm, cor relating to estimated gestational age of 6 weeks 1 day. Estimated date of delivery is 03/21/2021. Heart rate is 125 BPM.. The placenta is not yet developed due to early gestational age. Small 10 mm inferior subchorionic ble ed. The maternal adnexa and ovaries are within normal limits. Normal Doppler blood flow was demonstrated to both ovaries. IMPRESSION: Single live early intrauterine gestation with estimated gestational age of 6 weeks 1 day , SHALOM 03/21/2021. Small 10 mm inferior subchorionic bleed.
[2020-08-01 17:07] VITALS: TEMP 98; O2SAT 100
[2020-08-01 17:08] VITALS: BP 105/61
== END 2020-07-27 12:44 | disposition home or self-care (01) ==
LOC: ER 10:22
DX: O20.0 Threatened abortion (principal); O23.41 Unspecified infection of urinary tract in pregnancy, first trimester; Z3A.01 Less than 8 weeks gestation of pregnancy
CPT/HCPCS: 96365; 96361; 87088; 85025; 87086; 80048; 36415; 86900; 81025; 86901; 84702; 87077; 87186; 81003; 76817; 96375; 99284; J0696; J7030; J2405

== ENCOUNTER 2024-12-05 18:55 | Emergency (ER) | payer SELFPAY, OTHER ==
--- OUTSIDE RECORDS SUMMARY | 2024-12-05 18:58 | XMS REPORT | Continuity of Care Document ---
Author Name Unknown Address [address] [facility] [address] [place] [address] Organization [facility] [place] Address [address] [facility] [address] [place] [address] Care Team Providers Care Relief Mate Name Role Phone HUMZA HIGGINS Primary Care Physician Unavailab ALLISON Cast Attending Clinician Unavailable Humza Higgins MD Attending Clinician Unavailable Humza Higgins MD Attending Clinician Vaccine, [place] [facility] Attending Clinician U Nate Hudson Attending Clinician +- [phone] NATE BRANNON Attending Clinician Unavail HUMZA Galdamez Attending Clinician Unavailable Doctor Unassigned, [place] Attending Clinician U CHIDI Noguera Attending Clinician Unavailabl e HUMZA HIGGINS Admitting Clinician Unavailable Payers Payer Name Policy Type Policy Number Effective Date Expirati on Date Source [employer] MEDICAID [id number] 2019 00:00:00 [place] [id number] 2019 00:00:00 Problems Condition Name Condition Details Condition Category Status Onset Date Resolution Date Last Treatment Date Treating Clinician Comments Source Herpes, vulvar Herpes, vulvar Disease Active 11-15 00:00: 00 [facility] Vaginal irritation Vaginal irritation Disease Active 11-15 00:00: 00 [facility] Anemia of mother in , antepartum Anemia of mother in , antepartum Disease Active 0 6-18 00:00: 00 [facility] Anemia of mother in , antepartum Anemia of mother in , antepartum Disease Active 0 6-18 00:00: 00 [facility] Encounter for elective induction of labor Encounter for elective induction of labor Disease Resolve d 0 7-23 00:00: 00 2021-04-01 00:00:00 2021-04-01 15:27:21 [facility] Obesity affecting in third trimester Obesity affecting in third trimester Disease Resolve d 0 7-05 00:00: 00 2021-04-01 00:00:00 2021-04-01 15:27:28 [facility] Supervisio n of other normal Supervisio n of other normal Disease Resolve d 3-25 00:00: 00 2021-04-01 00:00:00 2021-04-01 15:27:27 [facility] Short interval between pregnancie s affecting in second trimester, antepartum Short interval between pregnancie s affecting in second trimester, antepartum Disease Resolve d 617 00:00: 00 2021-04-01 00:00:00 2021-04-01 15:27:22 [facility] Class 1 obesity without serious comorbidit y with body mass index (BMI) of 34.0 to 34.9 in adult, unspecifie d obesity type Class 1 obesity without serious comorbidit y with body mass index (BMI) of 34.0 to 34.9 in adult, unspecifie d obesity type Disease Resolve d 2-25 00:00: 00 2021-02-25 00:00:00 2021-02-25 21:24:49 [facility] BMI 28.0-28.9, adult BMI 28.0-28.9, adult Disease Resolve d 617 00:00: 00 2021-02-15 00:00:00 2021-02-15 11:24:31 [facility] Abnormal urinalysis Abnormal urinalysis Disease Resolve d 02-07 00:00: 00 2021-02-15 00:00:00 2021-02-15 11:24:19 [facility] Hirsutism Hirsutism Disease Resolve d 02-07 00:00: 00 2021-02-15 00:00:00 2021-02-15 11:24:24 [facility] Urinary tract infection in mother during first trimester of Urinary tract infection in mother during first trimester of Disease Resolve d 02-10 00:00: 00 2020-10-25 00:00:00 2020-10-25 17:20:46 [facility] Allergies, Adverse Reactions, Alerts Allergy Name Allergy Type Status Severity Reaction(s) Onset Date Inactive Date Treating Clinician Comments Source NO KNOWN ALLERGIE S Drug Class Active [facility] Social History Social Habit Start Date Stop Date Quantity Comments Source History SDOH Alcohol Std Drinks [facility] History SDOH Alcohol Binge [facility] Exposure to SARS-CoV-2 (event) Not sure [facility] History SDOH Alcohol Comment [place] [facility] ASSERTION [facility] Alcoholic beverage intake 2021-04-19 00:00:00 2021-04-19 00:00:00 Lifetime non-drinker (finding) [facility] History of Social function 2020-09-21 00:00:00 2020-09-21 00:00:00 [facility] Alcohol intake 2020-08-23 00:00:00 2020-08-23 00:00:00 Lifetime non-drinker (finding) [facility] Tobacco use and exposure 2019-02-07 00:00:00 2019-02-07 00:00:00 Smokeless tobacco non-user [facility] History SDOH Alcohol Frequency 2019-02-07 00:00:00 2019-02-07 00:00:00 1 [facility] Sex assigned at 1995 00:00:00 1995 00:00:00 [facility] Smoking Status Start Date Stop Date Source Never smoked tobacco [facility] Medications Ordered Medication Name Filled Medication Name Start Date Stop Date Current Medication? Ordering Clinician Indication Dosage Frequency Signature (SIG) Comments Components Source Lanolin Crea 9-14 00:00: 00 Yes [id number] Apply to area(s) 2 (two) times daily as needed for Itching (cracked nipples). [facility] Levonorgest rel 1.5 mg tablet 04-22 00:00: 00 04-23 04:59 :00 No [id number] 1.5mg Take 1 tablet by mouth once now for 1 dose. [facility] etonogestre L (NEXPLANON) implant 68 mg 04-19 23:30: 00 04-19 22:16 :00 No [id number] 68mg [facility] vitamin w/FA tablet 03-16 00:00: 00 Yes [id number] 102 1{tbl} Take 1 tablet by mouth daily. [facility] docusate calcium 240 mg capsule 03-16 00:00: 00 Yes [id number] 102 240mg Take 1 capsule by mouth once daily as needed for Constipati on. [facility] ferrous sulfate 325 mg (65 mg iron) tablet 03-16 00:00: 00 Yes [id number] 102 325mg Take 1 tablet by mouth 2 (two) times daily. [facility] ibuprofen 600 mg tablet 03-16 00:00: 00 Yes [id number] 102 600mg Take 1 tablet by mouth every 6 (six) hours as needed (Pain). Take with food or milk. [facility] vitamin w/FA tablet 03-16 00:00: 00 Yes [id number] 102 1{tbl} Take 1 tablet by mouth daily. [facility] ascorbic acid, vitamin C, 500 mg tablet 09-07 00:00: 00 03-12 00:00 :00 No [id number] 500mg Take 1 tablet by mouth daily. Take with iron daily. [facility] ferrous sulfate (IRON, FERROUS SULFATE,) 325 mg (65 mg iron) tablet 09-07 00:00: 00 2021- 05-20 00:00 :00 No [id number] 325mg Take 1 tablet by mouth daily. [facility] metoclopram evelyn HCl (REGLAN) 5 mg tablet 2019-08 00:00: 11-15 00:00 :00 No [id number] 5mg Take 1 tablet by mouth every 6 (six) hours as needed for Nausea and Vomiting (N/V). [facility] pyridoxine, VITAMIN B-6, 25 mg tablet 2019-08 00:00: 11-15 00:00 :00 No [id number] 25mg Take 1 tablet by mouth 3 (three) times daily. [facility] doxylamine 25 mg tablet 2019-08 00:00: 11-15 00:00 :00 No [id number] 25mg Take 1 tablet by mouth at bedtime. [facility] Nitrofurant oin&Nit. Macrocryst 100 mg capsule 2019-08 00:00: 11-15 00:00 :00 No TK 1 C PO Q 12 H FOR 7 DAYS [facility] VITAMIN 27 mg iron- 0.8 mg Tab 2019-08 00:00: 00 11-15 00:00 :00 No TK 1 T PO ONCE D [facility] ferrous sulfate 325 mg (65 mg iron) tablet 02-08 00:00: 11-15 00:00 :00 No [id number] 325mg Take 1 tablet by mouth 2 (two) times daily. [facility] ascorbic acid, vitamin C, 500 mg tablet 02-08 00:00: 00 11-15 00:00 :00 No [id number] 500mg Take 1 tablet by mouth 3 (three) times daily. [facility] PNV 67-iron ps-folate no.1-dha (VITAFOL ULTRA) 29 mg iron- 1 mg-200 mg Cap 02-07 00:00: 00 03-16 00:00 :00 No [id number] 1{capsu le} Take 1 capsule by mouth daily. [facility] Immunizations Ordered Immunization Name Filled Immunization Name Date Status Comments Source SARS-COV-2 COVID-19 PFIZER VACCINE 2021-05-02 00:00:00 Completed [facility] SARS-COV-2 COVID-19 PFIZER VACCINE 2021-05-02 00:00:00 Completed [facility] SARS-COV-2 COVID-19 PFIZER VACCINE 2021-04-01 00:00:00 Completed [facility] SARS-COV-2 COVID-19 PFIZER VACCINE 2021-04-01 00:00:00 Completed [facility] SARS-COV-2 COVID-19 PFIZER VACCINE 2021-04-01 00:00:00 Completed [facility] SARS-COV-2 COVID-19 PFIZER VACCINE 2021-04-01 00:00:00 Completed [facility] SARS-COV-2 COVID-19 PFIZER VACCINE 2021-04-01 00:00:00 Completed [facility] SARS-COV-2 COVID-19 PFIZER VACCINE 2021-04-01 00:00:00 Completed [facility] TDAP 2021-01-10 00:00:00 Completed [facility] TDAP 2021-01-10 00:00:00 Completed [facility] TDAP 2021-01-10 00:00:00 Completed [facility] TDAP 2021-01-10 00:00:00 Completed [facility] TDAP 2021-01-10 00:00:00 Completed [facility] TDAP 2021-01-10 00:00:00 Completed [facility] Influenza Virus Vaccine Quad .5 mL IM 6+ MO 2020-09-21 00:00:00 Completed [facility] Influenza Virus Vaccine Quad .5 mL IM 6+ MO 2020-09-21 00:00:00 Completed [facility] Influenza Virus Vaccine Quad .5 mL IM 6+ MO 2020-09-21 00:00:00 Completed [facility] Influenza Virus Vaccine Quad .5 mL IM 6+ MO 2020-09-21 00:00:00 Completed [facility] Influenza Virus Vaccine Quad .5 mL IM 6+ MO 2020-09-21 00:00:00 Completed [facility] Influenza Virus Vaccine Quad .5 mL IM 6+ MO 2020-09-21 00:00:00 Completed [facility] Influenza Virus Vaccine Quad .5 mL IM 6+ MO (FLUZONE/FLULAVAL/F LUARIX) Unknown Completed [facility] TDAP Unknown Completed [facility] SARS-COV-2 COVID-19 PFIZER VACCINE Unknown Completed [facility] Vital Signs Vital Name Observation Time Observation Value Comments S rangel Systolic blood pressure 2021-04-19 21:29:00 118 mm[Hg] [facility] Diastolic blood pressure 2021-04-19 21:29:00 71 mm[Hg] [facility] Heart rate 2021-04-19 21:29:00 70 /min [facility] Body temperature 2021-04-19 21:29:00 36.89 Karlee [facility] Respiratory rate 2021-04-19 21:29:00 18 /min [facility] Body height 2021-04-19 21:29:00 157.5 cm [facility] Body weight 2021-04-19 21:29:00 86.637 kg [facility] BMI 2021-04-19 21:29:00 34.93 kg/m2 [facility] Procedures Procedure Date / Time Performed Performing Clinician Source SARS-COV-2 COVID-19 VACCINE,0.3ML,IM (PFIZER) 2021-05-02 14:48:56 Doctor Unassigned, [place] [facility] CONSENT FOR CONTRACEPTION 2021-04-19 05:01:00 Doctor Unassigned, [place] [facility] POCT TEST 2021-04-19 00:00:00 Humza Higgins [facility] Encounters Start Date/Time End Date/Time Encounter Type Admission Type Attending Clinicians Care Facility Care Department Encounter ID Source 2021-06-24 09:25:44 Outpatient P [facility] [id number] [facility] 2021-06-24 08:48:48 Outpatient P [facility] [id number] [facility] 2021-06-24 08:44:36 Outpatient P [facility] JACKLYN [id number] [facility] 2024-05-10 09:15:00 2024-05-10 09:15:00 Outpatient VINCENT HARRISICE [facility] [id number] [facility] 2024-04-16 00:00:00 2024-04-18 09:34:52 Telephone Julián Higginsn [facility] NAZANIN VUMETHODIST [facility] 1..114 [id number] [id number] [id number] [facility] 2023-11-02 16:23:23 2023-11-02 16:23:23 Outpatient [facility] [id number] Nelson Pathak 2023-10-13 16:44:32 2023-10-13 16:44:32 Outpatient [facility] [id number] Nelson Pathak 2021-05-06 00:00:00 2021-05-06 00:00:00 Telephone Julián Higginsn [facility] 1..114 350.1.13.10 4.2.7.2.686 [id number] [facility] 2021-05-02 09:44:41 2021-05-02 09:54:41 Imm/Inj Visit [facility] Keith Brannon [facility] 1..114 350.1.13.10 4.2.7.2.686 [id number] [facility] 2021-05-02 09:40:00 2021-05-02 09:40:00 Outpatient NATE RETANA [facility] [id number] [facility] 2021-04-24 10:00:00 2021-04-24 10:00:00 Outpatient Aiyana [facility] [id number] [facility] 2021-04-22 00:00:00 2021-04-22 00:00:00 Telephone Julián Higginsn [facility] 1..114 350.1.13.10 4.2.7.2.686 [id number] [facility] 2021-04-22 00:00:00 2021-04-22 00:00:00 Telephone Humza Higgins [facility] [id number] 350.1.13.10 4.2.7.2.686 [id number] [facility] 2021-04-19 15:59:40 2021-04-19 17:01:32 Office Visit Julián Higginsn [facility] [id number] 350.1.13.10 4.2.7.2.686 [id number] [facility] 2021-04-19 16:00:00 2021-04-19 16:00:00 Outpatient R GHULAM HUMZA [facility] [id number] [facility] 2021-04-19 00:00:00 2021-04-19 00:00:00 Orders Only Doctor Unassigned, [place] [facility] [id number] 350.1.13.10 4.2.7.2.686 [id number] [facility] 2021-04-15 13:00:00 2021-04-15 13:00:00 Outpatient GHULAMJULIÁNN [facility] [id number] [facility] 2021-04-01 13:00:00 2021-04-01 13:00:00 Outpatient R HUMZA HIGGINS [facility] [id number] [facility] 2021-03-12 11:45:00 2021-03-12 11:45:00 Outpatient R [facility] [id number] [facility] 2021-03-11 13:30:00 2021-03-11 13:30:00 Outpatient R HUMZA HIGGINS [facility] [id number] [facility] 2021-03-08 14:30:00 2021-03-08 14:30:00 Outpatient R HUMZA HIGGINS [facility] [id number] [facility] 2021-03-04 15:15:00 2021-03-04 15:15:00 Outpatient R HUMZA HIGGINS [facility] [id number] [facility] 2021-02-25 13:45:00 2021-02-25 13:45:00 Outpatient R HUMZA HIGGINS [facility] [id number] [facility] 2021-02-21 15:15:00 2021-02-21 15:15:00 Outpatient R HUMZA HIGIGNS [facility] [id number] [facility] 2021-02-21 08:45:00 2021-02-21 08:45:00 Outpatient R HUMZA HIGGINS [facility] [id number] [facility] 2021-02-14 13:15:00 2021-02-14 13:15:00 Outpatient R HUMZA HIGGINS [facility] [id number] [facility] 2021-01-29 13:45:00 2021-01-29 13:45:00 Outpatient R HUMZA HIGGINS [facility] [id number] [facility] 2021-01-10 16:15:00 2021-01-10 16:15:00 Outpatient R HUMZA HIGGINS [facility] [id number] [facility] 2021-01-03 15:15:00 2021-01-03 15:15:00 Outpatient R HUMZA HIGGINS [facility] [id number] [facility] 2020-12-27 14:45:00 2020-12-27 14:45:00 Outpatient R HUMZA HIGGINS [facility] [id number] [facility] 2020-12-13 16:15:00 2020-12-13 16:15:00 Outpatient R HUMZA HIGGINS [facility] [id number] [facility] 2020-12-13 13:45:00 2020-12-13 13:45:00 Outpatient R HUMZA HIGGINS [facility] [id number] [facility] 2020-11-15 16:00:00 2020-11-15 16:00:00 Outpatient R HUMZA HIGGINS [facility] [id number] [facility] 2020-11-07 13:00:00 2020-11-07 13:00:00 Outpatient P [facility] [id number] [facility] 2020-10-27 09:45:00 2020-10-27 09:45:00 Outpatient CHIDI BASS [facility] [id number] [facility] 2020-10-25 13:00:00 2020-10-25 13:00:00 Outpatient R HUMZA HIGGINS [facility] [id number] [facility] 2020-10-18 14:30:00 2020-10-18 14:30:00 Outpatient R HUMZA HIGGINS [facility] [id number] [facility] 2020-09-21 14:00:00 2020-09-21 14:00:00 Outpatient R HUMZA HIGGINS [facility] [id number] [facility] 2020-09-20 08:15:00 2020-09-20 08:30:00 Routine Visit Humza Higgins [facility] [id number] [id number] [id number] [facility] 2020-09-20 08:15:00 2020-09-20 08:15:00 Outpatient HUMZA URENA [facility] [id number] [facility] 2020-09-06 14:30:00 2020-09-06 14:30:00 Outpatient HUMZA URENA [facility] [id number] [facility] 2020-09-04 13:27:30 2020-09-04 23:59:00 Outpatient R HUMZA HIGGINS [facility] [id number] [facility] 2020-08-23 10:00:00 2020-08-23 10:00:00 Outpatient HUMZA URENA [facility] [id number] [facility] 2019-02-26 00:00:00 2019-02-26 00:00:00 Patient Secure Msg Doctor Unassigned, [place] [facility] [id number] [id number] [id number] [id number] Results Test Description Test Time Test Comments Results Result Co mments Source [facility] Notes Date/Time Note Provider Source 2024-04-18 09:33:54 Spoke with patient and she will call the [facility] to get scheduled. Will have [facility] soon Joce Jim [facility] 2024-04-16 13:51:15 Indu Townsend is a 28 year old female Pt is calling stating she is due to have nexplanon removed. Please call [phone] Samira Milligan [facility]
[2024-12-05] MEDS ORDERED: KETOROLAC 30 MG/ML INJ ONE (19:28)
[2024-12-05] MEDS ORDERED: CYCLOBENZAPRINE 10 MG TAB ONE (19:29)
--- NOTE | 2024-12-05 20:39 | RAD REPORT ---
EXAM: CT brain without contrast HISTORY: TRAUMA COMPARISON: 07/21/2017 TECHNIQUE: Multiple contiguous axial images were obtained and a CT of the brain without contrast. Sag ittal and coronal reformats were performed. FINDINGS: No evidence of hydrocephalus, intracranial hemorrhage, or extra-axial fluid collection. The brain is normal in morphology. The calvarium is intact. The visualized paranasal sinuses and mastoid air cells are essentially clear . IMPRESSION: No evidence of acute intracranial abnormality. EXAM: CT of the cervical spine without contrast HISTORY: TRAUMA COMPARISON: None TECHNIQUE: Multiple contiguous axial images were obtained in a CT of the cervical spine without contr ast. Sagittal and coronal reformats were performed. FINDINGS: The vertebral bodies demonstrate normal height and alignment. No evidence of acute fracture or subluxation.. No degenerative changes are present. No prevertebral soft tissue swelling is seen. The posterior facets are well aligned. Normal alignment of the skull base with the cervical spine is seen. The lung apices are unremarkable. IMPRESSION: No evidence of acute osseous abnormality of the cervical spine.
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
[2024-12-05 21:13] VITALS: TEMP 98.4
[2024-12-05 21:16] VITALS: BP 108/71; O2SAT 100
== END 2024-12-05 21:08 | disposition home or self-care (01) ==
LOC: ER 18:55
DX: S13.4XXA Sprain of ligaments of cervical spine, initial encounter (principal); V49.9XXA Car occupant (driver) (passenger) injured in unspecified traffic accident, initial encounter
CPT/HCPCS: 70450; 72125; 96374; 99284